=== PATIENT | male | born 1960 | race Caucasian/White ===

== ENCOUNTER 2019-07-12 10:12 | Outpatient (CLI) | payer BC, SELFPAY ==
--- NOTE | ~2019-07-12 | XR_ITS ---
EXAMINATION: XR chest 2V EXAM DATE: 07/12/2019 11:15 INDICATION: Shortness of breath. TECHNIQUE: Frontal and lateral projections of the chest obtained and reviewed. Comparison is made to prior examination from 08/13/2018. FINDINGS: Cardiomegaly and pulmonary vascular congestion. No confluent consolidation, pneumothorax o r pleural effusion suspected. The bones are osteopenic. There are bony degenerative changes. There i s no significant interval change. IMPRESSION: Cardiomegaly, pulmonary vascular congestion. Reviewed, dictated and finalized at location B. 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
--- NOTE | 2019-07-12 10:15 | ECG_ITS ---
Measurements Intervals [place] Rate: 85 P: 61 IA: 160 QRS: 30 QRSD: 90 T: 39 QT: 343 QTc: 408 Interpretive Statements SINUS RHYTHM WITH SINUS ARRHYTHMIA NORMAL ECG Electronically Signed On 07-12-2019 15:59:30 CARD RUNNER by Lasha Luke D.O.
== END 2019-07-12 10:13 | disposition home or self-care (01) ==
PROVIDERS: PCP Family Medicine; Visit Provider Family Medicine
DX: R06.02 Shortness of breath (principal); I51.7 Cardiomegaly
CPT/HCPCS: 71046; 93005

== ENCOUNTER 2019-07-31 07:52 | Outpatient (CLI) | payer BC, SELFPAY ==
--- NOTE | 2019-07-31 08:45 | ECHO_ITS ---
Patient Info Name: Alexis Mathis Age: 59 years : 1960 Gender: Male Ht: 69 in Wt: 282 lbs BSA: 2.56 m2 HR: 82 bpm BP: 147 / 87 mmHg Technical Quality: Fair Exam Date: 07/31/2019 9:13 AM Exam Location: [facility] Patient Status: Outpatient Admit Date: 07/31/2019 Staff Ordering Physician: Enedelia Flynn MD Certified Family Mediator: Iris Rivera RDCS Attending Provider: Enedelia Flynn MD Referring Physician: Gee ZEPEDA; Exam Type: CA echo doppler color flow Study Info Indications R06.02 - Shortness of breath Complete two-dimensional, color flow and Doppler transthoracic echocardiogram is performed. Summary 1. Left ventricular chamber dimension is normal. 2. Left ventricular systolic function is normal, estimated at 55-60%. 3. The left ventricular diastolic function is grade II diastolic dysfunction. 4. E/e' 9 is minimally elevated. 5. Left atrial chamber dimension is mildly enlarged. 6. Right atrial chamber dimension is mildly enlarged. 7. There is mild aortic valve sclerosis. 8. Mild pulmonary hypertension, estimated pulmonary arterial systolic pressure is 46 mmHg. Left Ventricle E/e' 9 is minimally elevated. Left ventricular chamber dimension is normal. Left ventricular systolic function is normal, estimated at 55-60%. The left ventricular diastolic function is grade II diastolic dysfunction. Right Ventricle Right ventricular chamber dimension is normal. Right ventricular systolic function is normal. Left Atria Left atrial chamber dimension is mildly enlarged. Right Atria Right atrial chamber dimension is mildly enlarged. Aortic Valve The aortic valve is trileaflet. There is mild aortic valve sclerosis. There is no aortic valve stenosis. There is no aortic valve regurgitation. Pulmonic Valve There is no pulmonic regurgitation. Mitral Valve There is no mitral valve stenosis. There is no mitral valve regurgitation. Tricuspid Valve There is no tricuspid valve regurgitation. Mild pulmonary hypertension, estimated pulmonary arterial systolic pressure is 46 mmHg. Pericardium/Pleural There is no pericardial effusion. Inferior Vena Cava Normal inferior vena cava with >50% collapse upon inspiration consistent with normal right atrial pressure, 5 mmHg. Aorta The aortic root size at the sinus of Valsalva is normal. Left Ventricular Outflow Tract Name Value Normal LVOT 2D LVOT Diameter 1.9 cm LVOT Doppler LVOT Peak Gradient 9 mmHg LVOT Mean Gradient 5 mmHg LVOT VTI 28 cm LVOT VTI/AV VTI Ratio 0.8 LVOT Stroke Volume 77 ml LVOT CO 6.2 l/min LVOT CI 2.4 l/min/m2 Pulmonic Valve Name Value Normal RVOT Doppler
--- NOTE | 2019-08-06 14:50 | WPDPFTINT ---
PFT Interpretation PFT Interpretation: This PFT met all criteria for ATS standards and reproducibility FEV/FVC post bronchodilator 61% FEV1 54% or 1.74 liters FVC 63% or 2.83 liters FEV improved by 22% and 310 ml post bronchodilater TLC 82% RV 123% RV/TLC 53% DLCO 82% when adjusted for alveolar volume but not adjusted for hemoglobin Flow volume loops showed significant expiratory coving Impression: Moderate airflow obstruction with significant improvement post brondchodilator and air trapping. This correlates with Asthma and or COPD. Clinical correlation is advised.
== END 2019-07-31 07:53 | disposition home or self-care (01) ==
PROVIDERS: PCP Family Medicine; Visit Provider Family Medicine
DX: J45.909 Unspecified asthma, uncomplicated (principal); R06.02 Shortness of breath; I51.7 Cardiomegaly
CPT/HCPCS: 93306; 94060; 94726; 94729

== ENCOUNTER 2019-08-08 09:40 | Outpatient (CLI) | payer BC, SELFPAY ==
--- NOTE | ~2019-08-08 | CT_ITS ---
EXAMINATION: CT chest wo con DATE: 08/08/2019 10:08 INDICATION: Shortness of breath and cough, prior smoker TECHNIQUE: Computed tomography (CT) of the chest was performed without intravenous contrast. The dose -length product (DLP) was 769.61 mGy-cm. Automated exposure control and iterative reconstruction tech [id number] were employed. COMPARISON: None FINDINGS: There are tree-in-bud opacities of the right upper and middle lobes. 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 There is no pleural effusion or pn eumothorax. No pathologically enlarged thoracic lymph nodes are identified. The heart size is normal. There is a 2 cm cyst of the left hepatic lobe. There is moderate lumbar spondylosis. IMPRESSION: 1. Tree-in-bud opacities of the right upper and middle lobes, consistent with infection/inflammation. Reviewed, dictated and finalized at location A. ASTRUCTURE DIRECTOR IMPRESSION: 1. Tree-in-bud opacities of the right upper and middle lobes, consistent with i nfection/inflammation.
== END 2019-08-08 09:41 | disposition home or self-care (01) ==
PROVIDERS: PCP Family Medicine; Visit Provider Family Medicine
DX: R06.09 Other forms of dyspnea (principal); R91.8 Other nonspecific abnormal finding of lung field
CPT/HCPCS: 71250

== ENCOUNTER 2020-02-26 08:51 | Emergency (ER) | payer BC, SELFPAY ==
--- NOTE | ~2020-02-26 | CT_ITS ---
EXAMINATION: CT abdomen pelvis w con EXAM DATE: 02/26/2020 10:55 INDICATION: Low abdominal pain. TECHNIQUE: Spiral CT of the abdomen and pelvis was performed following intravenous injection of 100 m L Omnipaque 350. Axial, coronal and sagittal images were reviewed. The dose-length product (DLP) fo r this examination was 1294.67 mGy-cm. The exposure was tailored according to patient size (auto mA exposure control), and iterative reconstruction (ASIR) was used as additional dose reduction techniqu e. There is no prior study for comparison. FINDINGS: The liver, spleen, adrenal glands and pancreas are unremarkable. Gallbladder is unremarkab le. No biliary obstruction. Portal and splenic veins are patent. Kidneys enhance symmetrically. T here is no hydronephrosis. The prostate is unremarkable. The bladder is unremarkable. There is no retroperitoneal or pelvic lymphadenopathy. There is mild scattered arteriosclerotic disease. There is extensive colonic diverticulosis with mild perisigmoid inflammation, most likely acute uncom plicated sigmoid diverticulitis. The appendix is normal. The stomach and small bowel are unremarkabl e. No free intraperitoneal gas. The heart is normal in size. There are no pericardial or pleural effusions. The lung bases are unremarkable. There are no osteoblastic or osteolytic lesions identi fied. There is a 1.2 x 0.8 cm sclerotic focus in the right iliac crest, probably bone island given n o other sclerotic foci are identified. IMPRESSION: 1. Findings consistent with mild uncomplicated sigmoid diverticulitis. Reviewed, dictated and finalized at location A.
[2020-02-26 09:22] VITALS: BP 166/87; PULSE 78; RESP 18; TEMP 36.6; O2SAT 97
[2020-02-26 09:31] LABS: Basophils Percent Auto 0.4 % (0.2-1.2); Eosinophils Absolute Auto 0.1 K/mm3 (0-0.3); Eosinophils Percent Auto 0.9 % (0-4.4); Hemoglobin 14.2 g/dL (14.0-18.0); Immature Granulocyte Absolute 0.05 K/mm3 (0.00-0.031); Immature Granulocyte Percent A 0.5 % (0-0.5); Lymphocytes Absolute Auto 0.91 K/mm3 (0.9-3.2); Lymphocytes Percent Auto 9.1 % (18.3-44.2); Mean Corpuscular HGB Conc 33.8 g/dl (32-36); Mean Corpuscular Hemoglobin 33.9 pg (26-34); Mean Corpuscular Volume 100.2 fl (80-100); Mean Platelet Volume 10.4 fl (7.4-10.4); Monocytes Absolute Auto 0.6 K/mm3 (0.1-0.6); Monocytes Percent Auto 5.7 % (2.6-8.5); Neutrophils Absolute Auto 8.4 K/mm3 (1.3-6.7); Neutrophils Percent Auto 83.4 % (45.5-73.1); Platelet Count Result 278 k/mm3 (150-375); Red Blood Count 4.19 M/mm3 (4.6-6.20); Red Cell Distribution Width 13.1 % (11.5-14.5)
[2020-02-26 09:32] LABS: Add Urine Microscopic? NO; Appearance Urine Clear (Clear); Bilirubin Urine Negative (Negative); Blood Urine Negative (Negative); Color Urine Yellow (Yellow); Glucose Urine UA Negative (Negative); Ketones Urine Negative (Negative); Leukocyte Esterase Ur Negative LEU/UL (Negative); Nitrate Urine Negative (Negative); Protein Urine Negative (Negative); Specific Grav Ur 1.016 (1.001-1.035); Urobilinogen Urine Negative mg/dL (<2.0)
[2020-02-26 10:06] LABS: Alanine Aminotransferase 32 U/L (4-50); Albumin Level 4.7 g/dL (3.5-5.1); Alkaline Phosphatase 111 U/L (38-126); Anion Gap 9 mmol/L (8-16); Aspartate Amino Transferase 26 U/L (17-59); Bilirubin,Total 0.6 mg/dL (0.2-1.3); Blood Urea Nitrogen 16 mg/dL (9-20); Calcium 9.8 mg/dL (8.4-10.2); Carbon Dioxide 26 mmol/L (22-30); Chloride 101 mmol/L (98-107); Estimated CRCL calculation 122 ml/min; Estimated Glomerular Filt Rate > 60; Glucose 149 mg/dL (75-110); Lipase 75 U/L (23-300); Potassium 4.2 mmol/L (3.4-5.0); Sodium 136 mmol/L (137-145)
--- NOTE | 2020-02-26 10:33 | ED.ABDPAIN ---
HPI - Abdominal Pain General Chief Complaint: Abdominal Pain Stated Complaint: bilat flank pain, abd pain Time Seen by Provider: 02/26/20 10:00 Source: patient Mode of arrival: ambulatory Limitations: no limitations History of Present Illness HPI narrative: This patient is a 59 year old male who presents for evaluation of lower back pain and left lower abdominal pain. Patient states he has been having lower back pain for 2 weeks. This pain is intermittent. He states it seems to be worse with laying down. He denies any injury. He has been taking ibuprofen for his pain, and it is minimal now. He also reports left lower abdominal pain that started yesterday. This pain is also intermittent and he denies having pain currently. Yesterday his abdominal pain was worse with eating. He denies associated nausea or vomiting. HE also denies hematuria. Related Data Home Medications Medication Instructions Recorded Confirmed sildenafil 100 mg tablet 100 mg PO DAILY PRN 06/27/19 06/27/19 Allergies Allergy/AdvReac Type Severity Reaction Status Date / Time No Known Allergies Allergy Verified 06/29/19 10:13 Review of Systems Review of Systems: All systems reviewed & are unremarkable except as noted in HPI and below Constitutional: Constitutional: Reports chills Gastrointestinal: Gastrointestinal: Reports abdominal pain, Denies diarrhea, Denies nausea and Denies vomiting Genitourinary: Genitourinary: Denies hematuria, Reports dysuria and Denies urinary frequency Musculoskeletal: Musculoskeletal: Reports back pain PMFSH Social History Social History Smoking status: Never smoker Second hand tobacco smoke exposure: No Alcohol intake: never Gender identity (if verbalized by the patient): Male Exam Narrative: Exam Narrative: GENERAL: Well-appearing, well-nourished, and in no acute distress. HEAD: Normocephalic, atraumatic EYES: PERRLA and EOMI, conjunctiva clear without discharge THROAT:Mucous membranes moist, Oropharynx normal without erythema, exudate, peritonsillar swelling or fluctuance NECK: Supple, without lymphadenopathy or mass RESPIRATORY: No respiratory distress, Airway patent, Respirations non-labored, Clear to auscultation without rales, rhonchi or wheeze HEART: Regular rate and rhythm. No murmur heard. Normal peripheral pulses. ABDOMEN: Soft, nontender, nondistended, normal active bowel sounds. No masses. No rebound or guarding, No organomegaly. EXTREMITIES: No edema, normal strength with full range of motion. SKIN: Warm, dry, normal color without rash NEURO: Alert and oriented x3. CN 2-12 grossly intact. No focal deficits. PSYCH: Normal mood and affect. Course Reevaluation(s) Reevaluation #1: I discussed with patient that he was found to have diverticulitis and he was given dose of zosyn. He will be discharged with antibiotics. Date: 02/26/20 Time: 12:13 Vital Signs Vital signs: Vital Signs Temperature 97.8 F 02/26/20 09:22 Pulse Rate 78 02/26/20 09:22 Respiratory Rate 18 02/26/20 09:22 Blood Pressure 166/87 H 02/26/20 09:22 Pulse Oximetry 97 02/26/20 09:22 Temperature 97.8 F 02/26/20 09:22 Pulse Rate 76 02/26/20 12:26 Respiratory Rate 18 02/26/20 12:26 Blood Pressure 150/70 H 02/26/20 12:26 Pulse Oximetry 99 02/26/20 12:26 MDM - Abdominal Pain Lab Data Attestation: I reviewed the patient's lab results. Result diagrams: 02/26/20 09:22 02/26/20 09:43 Labs: Lab Results 02/26/20 02/26/20 02/26/20 Range/Units 09:22 09:22 09:43 WBC 10.0 (4.5-10.0) K/mm3 RBC 4.19 L (4.6-6.20) M/mm3 Hgb 14.2 (14.0-18.0) g/dL Hct 42.0 (42.0-52.0) % MCV 100.2 H (80-100) fl MCH 33.9 (26-34) pg MCHC 33.8 (32-36) g/dl RDW 13.1 (11.5-14.5) % Plt Count 278 (150-375) k/mm3 MPV 10.4 (7.4-10.4) fl Immature Gran % (Auto) 0.5 (0-0.5)
--- NOTE | 2020-02-26 11:07 | PC.NURSE ---
REPORT GIVEN TO GISELL CURRAN AT THE BEDSIDE AT THIS TIME, SHE HAS ASSUMED PT CARE.
[2020-02-26 12:26] VITALS: BP 150/70; PULSE 76; RESP 18; O2SAT 99
== END 2020-02-26 12:27 | disposition home or self-care (01) ==
PROVIDERS: Emergency Provider General Practice; PCP Family Medicine
DX: K57.32 Diverticulitis of large intestine without perforation or abscess without bleeding (principal)
CPT/HCPCS: 36415; 74177; 80053; 81003; 83690; 85025; 96365; 99284; J2543; Q9967

== ENCOUNTER 2020-03-11 09:29 | Outpatient (CLI) | payer BC, SELFPAY ==
--- NOTE | ~2020-03-11 | CT_ITS ---
EXAMINATION:CT chest wo con DATE: 03/11/2020 09:47 INDICATION: Pulmonary nodules. TECHNIQUE: Computed tomography (CT) of the chest was performed without intravenous contrast. Automate d exposure control and iterative reconstruction technique were employed. The dose-length product (DLP ) was 741.46 mGy-cm. COMPARISON: Chest CT 08/08/2019 FINDINGS: Right lower lobe is small, which is chronic. There is mild atelectasis in right lower lobe. A calcified left lung nodule is consistent with old granulomatous disease. No pleural effusion. The heart size is normal. There are coronary artery calcifications. No pericardial effusion. There is a 1 7 mm cyst in the liver. There are bridging endplate osteophytes at multiple levels in the spine, cons istent with diffuse idiopathic skeletal hyperostosis (DISH). There is mild chronic anterior wedging o f T4, T12, and L1 vertebral bodies. IMPRESSION: 1. Chronically small right lung lower lobe with mild atelectasis. Reviewed, dictated and finalized at location A.
== END 2020-03-11 09:30 | disposition home or self-care (01) ==
PROVIDERS: PCP Family Medicine
DX: R91.1 Solitary pulmonary nodule (principal)
CPT/HCPCS: 71250

== ENCOUNTER 2020-04-25 09:12 | Emergency (ER) | payer BC, SELFPAY ==
--- NOTE | ~2020-04-25 | XR_ITS ---
EXAMINATION: XR chest 2V DATE: 04/25/2020 09:55 INDICATION: Dizziness. Left arm numbness. TECHNIQUE: Frontal and lateral views of the chest were obtained. COMPARISON: Chest 2 views 07/12/2019, chest CT 03/11/2020 FINDINGS: There is mild atelectasis in the lower lung zones. No pleural effusion or pneumothorax. The heart size is normal. There is a prominent left paracardial fat pad. There is mild chronic anterior wedging of T11-L1 vertebral bodies. IMPRESSION: 1. Mild atelectasis in the lower lung zones. Reviewed, dictated and finalized at location B. 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
--- NOTE | ~2020-04-25 | CT_ITS ---
EXAMINATION: CT brain wo con EXAM DATE: 04/25/2020 10:34 INDICATION: Right hand paresthesia. Dizziness. TECHNIQUE: Spiral CT of the head was performed without contrast. Axial, coronal and sagittal images were reviewed. The dose-length product (DLP) for this examination was 681.00 mGy-cm. The exposure w as tailored according to patient size, and iterative reconstruction (ASIR) was used as additional dos e reduction technique. There is no prior study for comparison. FINDINGS: There is no acute intraparenchymal hemorrhage. No evidence of intraparenchymal brain mass lesion. No evidence of acute infarction. Please note that initial head CT has limited sensitivity f or small or acute infarctions. There is mild periventricular and subcortical hypodensity, nonspecific but probably related to small vessel ischemic disease. There is mild prominence of the sulci and v entricles related to cerebral atrophy. There is intracranial carotid arteriosclerosis. There are n o extra-axial collections. There is no mass effect or midline shift. The orbits are unremarkable. Soft tissue is unremarkable. The visualized sinuses and mastoid air cells are well aerated. IMPRESSION: 1. No acute intracranial findings. 2. Chronic age related findings. Reviewed, dictated and finalized at location A. 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
[2020-04-25 09:18] VITALS: BP 160/80; PULSE 95; RESP 24; TEMP 36.6; O2SAT 98
--- NOTE | 2020-04-25 09:25 | ECG_ITS ---
Measurements Intervals [place] Rate: 89 P: 24 TN: 157 QRS: 11 QRSD: 89 T: 30 QT: 346 QTc: 423 Interpretive Statements SINUS RHYTHM NORMAL ECG Electronically Signed On 04-25-2020 14:39:21 PORTAL ARCHITECT by Lasha Luke D.O.
[2020-04-25 09:26] VITALS: BP 137/80; BP 160/85; PULSE 90
[2020-04-25 09:27] VITALS: BP 134/80; PULSE 100
[2020-04-25 09:45] LABS: Basophils Percent Auto 0.2 % (0.2-1.2); Eosinophils Absolute Auto 0.1 K/mm3 (0-0.3); Eosinophils Percent Auto 0.9 % (0-4.4); Hematocrit 38.4 % (42.0-52.0); Immature Granulocyte Absolute 0.03 K/mm3 (0.00-0.031); Immature Granulocyte Percent A 0.3 % (0-0.5); Lymphocytes Absolute Auto 1.08 K/mm3 (0.9-3.2); Mean Corpuscular HGB Conc 33.9 g/dl (32-36); Mean Corpuscular Hemoglobin 33.6 pg (26-34); Mean Corpuscular Volume 99.2 fl (80-100); Mean Platelet Volume 9.7 fl (7.4-10.4); Monocytes Absolute Auto 0.6 K/mm3 (0.1-0.6); Monocytes Percent Auto 6.1 % (2.6-8.5); Neutrophils Absolute Auto 7.3 K/mm3 (1.3-6.7); Neutrophils Percent Auto 80.5 % (45.5-73.1); Platelet Count Result 288 k/mm3 (150-375); Red Blood Count 3.87 M/mm3 (4.6-6.20); Red Cell Distribution Width 13.6 % (11.5-14.5)
[2020-04-25 09:57] LABS: Anion Gap 9 mmol/L (8-16); Blood Urea Nitrogen 17 mg/dL (9-20); Calcium 9.7 mg/dL (8.4-10.2); Carbon Dioxide 26 mmol/L (22-30); Chloride 104 mmol/L (98-107); Estimated CRCL calculation 118 ml/min; Estimated Glomerular Filt Rate > 60; Glucose 134 mg/dL (75-110); Potassium 4.2 mmol/L (3.4-5.0); Sodium 139 mmol/L (137-145)
[2020-04-25 09:58] LABS: INR 0.9; Prothrombin Time 12.7 Seconds (11.1-14.7)
[2020-04-25 09:59] LABS: Partial Thromboplastin Time 30.3 SECONDS (22.3-36.8)
[2020-04-25 10:09] LABS: Troponin I < 0.012 ng/mL (0.000-0.034)
--- NOTE | 2020-04-25 10:25 | ED.GENADULT ---
HPI - General Adult General Chief complaint: Dizziness Stated complaint: tingling arms, dizzy since yesterday Time Seen by Provider: 04/25/20 10:00 Source: patient and family Mode of arrival: ambulatory Limitations: no limitations History of Present Illness HPI narrative: 60 years old white male presented to the ED with lightheadedness and intermittent numbness of the left hand, sometimes right hand, sometimes both usually last for few seconds then resolves spontaneously. Currently patient is asymptomatic. Patient denying any fever, chills, nausea, vomiting, chest pain, shortness of breath, back pain or headache. Patient reports tremendous amount of stress lately. Related Data Home Medications Medication Instructions Recorded Confirmed sildenafil 100 mg tablet 100 mg PO DAILY PRN 06/27/19 06/27/19 Allergies Allergy/AdvReac Type Severity Reaction Status Date / Time No Known Allergies Allergy Verified 04/25/20 09:34 Review of Systems Review of Systems: Narrative: CONSTITUTIONAL: Denies fever, chills, or sweats. EYES: Denies visual changes, redness, or discharge. ENT: Denies rhinorrhea, congestion, sore throat, or otalgia. CARDIOVASCULAR: Denies chest pain, palpitations, or edema. RESPIRATORY: Denies cough or dyspnea. GASTROINTESTINAL: Denies abdominal pain, nausea, vomiting, or diarrhea. GENITOURINARY: Denies dysuria or hematuria. SKIN: Denies rash or itching. MUSCULOSKELETAL: Denies back pain, joint pain, or myalgia. NEUROLOGIC: Denies headache, numbness, or weakness. PSYCHIATRIC: Denies anxiety or depression. [facility] Past Medical History Medical History (Updated 04/25/20 @ 10:31 by Key Sharp MD) Elevated glucose Essential hypertension Mild persistent asthma Mixed hyperlipidemia Social History Social History Smoking status: Never smoker Second hand tobacco smoke exposure: No Alcohol intake: never Gender identity (if verbalized by the patient): Male Exam Narrative: Exam Narrative: General appearance: Well-developed, well-nourished Skin: Normal color Head: Normocephalic, nontraumatic Eyes: Clear conjunctiva ENT: Oropharynx normal, ears normal, nose normal Neck: Supple, nontender Chest and respiratory: Airway patent, no respiratory distress, no accessory muscle use Heart: Regular rate/rhythm Abdomen: Soft, nontender, no organomegaly, quiet bowel sounds Vascular: Normal peripheral pulses, normal capillary refill. 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 Labs, CT head, chest x-ray, 1 mg of Ativan IV ordered. Differential Diagnosis Differential Diagnosis: On anxiety related symptoms, electrolyte imbalance, Vital Signs Vital Signs: Vital Signs Temperature 36.6 C 04/25/20 09:18 Pulse Rate 95 04/25/20 09:18 Respiratory Rate 24 H 04/25/20 09:18 Blood Pressure 160/80 H 04/25/20 09:18 Pulse Oximetry 98 04/25/20 09:18 Temperature 36.6 C 04/25/20 09:18 Pulse Rate 81 04/25/20 10:4
--- NOTE | 2020-04-25 10:28 | PC.NURSE ---
Pt to CT scan via stretcher.
[2020-04-25] MEDS: LORazepam INJ (*CRX) 2 MG/ML VIAL 1 MG IV PUSH (10:45)
[2020-04-25 10:47] VITALS: BP 144/78; PULSE 81; RESP 15; O2SAT 98
[2020-04-25 11:21] VITALS: BP 130/78; PULSE 85; RESP 21; O2SAT 96
== END 2020-04-25 11:23 | disposition home or self-care (01) ==
PROVIDERS: Emergency Provider Emergency Medicine; PCP Family Medicine
DX: R20.2 Paresthesia of skin (principal); F41.9 Anxiety disorder, unspecified; I10 Essential (primary) hypertension; J45.20 Mild intermittent asthma, uncomplicated; E78.2 Mixed hyperlipidemia; R91.8 Other nonspecific abnormal finding of lung field
CPT/HCPCS: 36415; 70450; 71046; 80048; 84484; 85025; 85610; 85730; 93005; 96374; 99284; J2060

== ENCOUNTER 2020-10-31 11:05 | Outpatient (CLI) | payer BC, SELFPAY ==
[2020-10-31 12:06] LABS: Erythrocyte Sedimentation Rate 27 mm/hr (0-20)
[2020-11-04 12:13] LABS: Tissue Transglutaminase IgA Ab 1 U/mL (<4)
[2020-11-04 19:02] LABS: Tissue Transglutaminase IgG Ab 2 U/mL (<6)
== END 2020-10-31 11:06 | disposition home or self-care (01) ==
LOC: ANHLAB 11:06
PROVIDERS: PCP Family Medicine; Visit Provider Internal Medicine Gastroenterology
DX: K52.9 Noninfective gastroenteritis and colitis, unspecified (principal)
CPT/HCPCS: 36415; 83516; 85652; 86140

== ENCOUNTER 2021-01-27 07:18 | Outpatient (CLI) | payer BC, SELFPAY ==
--- NOTE | ~2021-01-27 | US_ITS ---
US abdomen complete EXAMINATION: US Abdomen Complete INDICATION: Abdominal pain PROCEDURE: Realtime High Resolution abdomen ultrasound. COMPARISON: No prior studies for comparison FINDINGS: Gallbladder within normal limits. No gallstones, pericholecystic fluid, gallbladder wall t hickening or biliary dilatation. Common bile duct measures 4 mm. Liver echotexture is increased, consistent with fatty infiltration.. The pancreas is obscured by brittaney l gas. Spleen is unremarkeable. Renal echotexture is within normal limits bilaterally without hydrone phrosis, contour deforming mass or renal stone. Right kidney measures 10.9 cm. Left kidney measures 1 0.7 cm. Visualized aspects of the aorta and IVC are within normal limits. Portal vein is patent. No sonograph ic Batista's sign indicated by the technologist. IMPRESSION: 1: Hepatic steatosis. Reviewed, dictated and finalized at location A. IMPRESSION: 1: Hepatic steatosis.
== END 2021-01-27 07:19 | disposition home or self-care (01) ==
LOC: ANHIMG 07:23
PROVIDERS: PCP Family Medicine; Visit Provider Internal Medicine Gastroenterology
DX: R10.9 Unspecified abdominal pain (principal); R14.0 Abdominal distension (gaseous); K76.0 Fatty (change of) liver, not elsewhere classified
CPT/HCPCS: 76700

== ENCOUNTER → 2021-10-06 12:56 | Outpatient (CLI) | payer BC, SELFPAY ==
--- NOTE | ~2021-10-06 | XR_ITS ---
XR chest 2V DATE: 10/06/2021 13:07 INDICATION: Shortness of breath TECHNIQUE: 2 views COMPARISON: 04/25/2020 PA and lateral chest FINDINGS: Cardiac megaly. Pulmonary vascular redistribution, suggesting mild pulmonary venous hyperte nsion. No pulmonary consolidation. No pleural effusion or pneumothorax. Osteopenia. Degenerative spurring of the thoracic spine. IMPRESSION: Cardiomegaly and pulmonary vascular redistribution, suggesting mild congestive heart fail ure Reviewed, dictated and finalized at location A. IMPRESSION: Cardiomegaly and pulmonary vascular redistribution, suggesting mild congestive heart failure
== END ==
PROVIDERS: PCP Family Medicine; Visit Provider Physician Assistant
DX: R06.02 Shortness of breath (principal); I51.7 Cardiomegaly
CPT/HCPCS: 71046

== ENCOUNTER 2021-10-07 09:45 | Outpatient (CLI) | payer BC, SELFPAY ==
[2021-10-07 10:05] LABS: Basophils Percent Auto 0.3 % (0.2-1.2); Eosinophils Absolute Auto 0.1 K/mm3 (0-0.3); Eosinophils Percent Auto 1.6 % (0-4.4); Hematocrit 36.7 % (42.0-52.0); Hemoglobin 11.8 g/dL (14.0-18.0); Immature Granulocyte Absolute 0.03 K/mm3 (0.00-0.031); Immature Granulocyte Percent A 0.4 % (0-0.5); Lymphocytes Percent Auto 13.3 % (18.3-44.2); Mean Corpuscular HGB Conc 32.2 g/dl (32-36); Mean Corpuscular Hemoglobin 32.4 pg (26-34); Mean Corpuscular Volume 100.8 fl (80-100); Mean Platelet Volume 9.7 fl (7.4-10.4); Monocytes Absolute Auto 0.5 K/mm3 (0.1-0.6); Monocytes Percent Auto 6.8 % (2.6-8.5); Neutrophils Absolute Auto 5.3 K/mm3 (1.3-6.7); Neutrophils Percent Auto 77.6 % (45.5-73.1); Platelet Count Result 250 k/mm3 (150-375); Red Blood Count 3.64 M/mm3 (4.6-6.20); Red Cell Distribution Width 15.3 % (11.5-14.5); White Blood Count 6.8 K/mm3 (4.5-10.0)
[2021-10-07 10:20] LABS: Iron 62 ug/dL (49-181)
[2021-10-07 10:29] LABS: NT Pro B Type Natriuretic Pept 1130 pg/mL (5-100); Percent Iron Saturation 15 % (20-50)
== END 2021-10-07 09:46 | disposition home or self-care (01) ==
LOC: ANHLAB 09:47
PROVIDERS: PCP Family Medicine; Visit Provider Physician Assistant Medical
DX: R53.83 Other fatigue (principal); R07.9 Chest pain, unspecified
CPT/HCPCS: 36415; 82728; 83540; 83550; 83880; 85025

== ENCOUNTER 2021-12-01 07:29 | Outpatient (CLI) | payer BC, SELFPAY ==
--- NOTE | 2021-12-01 07:49 | ECHO_ITS ---
Patient Info Name: Alexis Mathis Age: 61 years : 1960 Gender: Male Ht: 69 in Wt: 285 lbs BSA: 2.57 m2 HR: 108 bpm BP: 140 / 87 mmHg Heart Rhythm: Atrial Fibrillation Technical Quality: Fair Exam Date: 12/01/2021 8:15 AM Exam Location: [facility] Patient Status: Outpatient Admit Date: 12/01/2021 Staff Ordering Physician: Lasha Luke DO Compressor Stations Superintendent: Iris Rivera RDCS Attending Provider: Lasha Luke DO Referring Physician: Ti CALVIN; Exam Type: CA echo dop color flow w con Study Info Indications R60.0 - Localized edema Complete two-dimensional, color flow and Doppler transthoracic echocardiogram is performed with contrast to opacify the left ventricle and to improve the deliniation of the left ventricle endocardial borders. Contrast/Agitated Saline Contrast/Ag. Saline: Definity Amount: 3.00 ml Administered By: Iris Rivera RDCS New IV Access: Inner Forearm and Left Site Condition: No extravasation and IV removed Summary 1. Definity contrast administered improved wall motion interpretation. 2. Left ventricular chamber dimension is moderately enlarged. 3. Left ventricular systolic function is mildly reduced, estimated at 45-50%. 4. The left ventricular diastolic function is normal. 5. E/e' 9 is minimally elevated. 6. Atrial fibrillation. 7. Right ventricular systolic function is mildly reduced. 8. Right ventricular chamber dimension is moderately enlarged. 9. Left atrial chamber dimension is moderately enlarged. 10. Right atrial chamber dimension is mildly enlarged. 11. There is moderate aortic valve sclerosis. 12. There is trace tricuspid valve regurgitation. 13. Mild pulmonary hypertension, estimated pulmonary arterial systolic pressure is 43 mmHg. 14. Dilated inferior vena cava with >50% collapse upon inspiration consistent with elevated right atrial pressure, 10 mmHg. Left Ventricle E/e' 9 is minimally elevated. Atrial fibrillation. Definity contrast administered improved wall motion interpretation. Left ventricular chamber dimension is moderately enlarged. Left ventricular systolic function is mildly reduced, estimated at 45-50%. The left ventricular diastolic function is normal. Right Ventricle Right ventricular systolic function is mildly reduced. Right ventricular chamber dimension is moderately enlarged. Left Atria Left atrial chamber dimension is moderately enlarged. Right Atria Right atrial chamber dimension is mildly enlarged. Aortic Valve The aortic valve is trileaflet. There is moderate aortic valve sclerosis. There is no aortic valve stenosis. There is no aortic valve regurgitation. Pulmonic Valve There is no pulmonic regurgitation. Mitral Valve There is no mitral valve stenosis. There is no mitral valve regurgitation. Tricuspid Valve There is trace tricuspid valve regurgitation. Mild pulmonary hypertension, estimated pulmonary arterial systolic pressure is 43 mmHg. Pericardium/Pleural There is no pericardial effusion. Inferior Vena Cava Dilated inferior vena cava with >50% collapse upon inspiration consistent with elevated right atrial pressure, 10 mmHg. Aorta The aortic root size at the sinus of Valsalva is normal. Left Ventricular Outflow Tract Name Value Normal
[2021-12-01] MEDS: PERFLUTREN LIPID MICROSPHERES 1.5 ML VIAL DILUTED TO 10 ML TOTAL VOLUME IV PUSH (09:15)
== END 2021-12-01 07:30 | disposition home or self-care (01) ==
LOC: ANHCARD 07:33
PROVIDERS: PCP Family Medicine; Visit Provider Internal Medicine Cardiovascular Disease
DX: R60.0 Localized edema (principal); I08.3 Combined rheumatic disorders of mitral, aortic and tricuspid valves
CPT/HCPCS: C8929; Q9957

== ENCOUNTER 2021-12-18 08:25 | Outpatient (CLI) | payer BC, SELFPAY ==
--- NOTE | ~2021-12-18 | NM_ITS ---
EXAMINATION: NM yury stress w perfusion DATE: 12/18/2021 10:27 INDICATION: Atherosclerotic heart disease of [place] coronary arteries TECHNIQUE: Rest images were obtained following intravenous administration of 10.8 mCi Tc99m tetrofosm in (Myoview). The patient was infused intravenously with Lexiscan (Regadenoson). Then, 34.6 mCi Tc99m tetrofosmin (Myoview) was administered intravenously, and stress images were obtained. Data was valentin nstructed into short axis and horizontal and vertical long axis SPECT images. Gated SPECT images were also obtained. COMPARISON: None. FINDINGS: There is no definite reversible or fixed perfusion abnormality to suggest ischemia or infar ction. There is normal left ventricular chamber size, wall motion and ejection fraction. Left ventr icular ejection fraction measures 52%. IMPRESSION: 1. Normal myocardial perfusion at rest and during stress. 2. Left ventricular ejection fraction measuring 52%. Reviewed, dictated and finalized at location A.
--- NOTE | 2021-12-18 08:39 | EST_ITS ---
Patient Info Name: Alexis Mathis Age: 61 years : 1960 Gender: Male Ht: 69 in Wt: 290 lbs BSA: 2.59 m2 HR: 105 bpm BP: 163 / 103 mmHg Heart Rhythm: Sinus Rhythm Exam Date: 12/18/2021 9:30 AM Exam Location: [facility] Stress Patient Status: Outpatient Admit Date: 12/18/2021 Staff Ordering Physician: Lasha Luke DO Attending Provider: Lasha Luke DO Exercise Technologist: Jeanine Henning CT Exercise Physician: Lasha Luke DO Exam Type: CA stress yury w NM Study Info Indications I25.10 - Atherosclerotic heart disease of [place] coronary artery without angina pectoris A regadenoson stress test was performed. Summary 1. 1. Negative lexiscan stress test for ischemic ST changes by ECG criteria. 2. 2. Baseline hypertension. 3. 3. Nuclear scan to follow and will be reported separately. Please correlate with it. 4. 4. Patient informed of the above results. Protocol: Lexiscan Stress ECG Details Stage: REST Duration (min): 2 min : 22 sec HR (bpm): 104 SBP (mmHg): 163 DBP (mmHg): 103 Stage: REST Duration (min): 13 min : 50 sec HR (bpm): 94 SBP (mmHg): 163 DBP (mmHg): 103 Stage: STAGE 1 Duration (min): 1 min : 0 sec HR (bpm): 108 SBP (mmHg): 212 DBP (mmHg): 98 Stage: RECOVERY Duration (min): 1 min : 0 sec HR (bpm): 120 SBP (mmHg): 212 DBP (mmHg): 98 Stage: RECOVERY Duration (min): 2 min : 0 sec HR (bpm): --- SBP (mmHg): 212 DBP (mmHg): 98 Stage: RECOVERY Duration (min): 3 min : 0 sec HR (bpm): 120 SBP (mmHg): 212 DBP (mmHg): 98 Stage: RECOVERY Duration (min): 4 min : 0 sec HR (bpm): 114 SBP (mmHg): 212 DBP (mmHg): 98 Stage: RECOVERY Duration (min): 4 min : 20 sec HR (bpm): 113 SBP (mmHg): 199 DBP (mmHg): 101 Rest HR: 94 bpm Peak HR: 130 bpm Rest Sys BP: 163 mmHg Peak Sys BP: 212 mmHg Max Pred HR: 160 bpm % Max Pred HR: 81 % Target HR: 136 bpm Max RPP: 27,560 bpm*mmHg Termination Reason: Completed protocol Cardiac Symptoms: Shortness of breath Total Time: 1 min : 0 sec Rest Guzmán BP: 103 mmHg Peak Guzmán BP: 98 mmHg Total Dose: 0.4 mg Resting ECG Atrial fibrillation, IRBBB. Stress ECG No ST changes. Arrhythmias None. Report Signatures
== END 2021-12-18 08:26 | disposition home or self-care (01) ==
PROVIDERS: PCP Family Medicine; Visit Provider Internal Medicine Cardiovascular Disease
DX: I25.10 Atherosclerotic heart disease of native coronary artery without angina pectoris (principal); I51.89 Other ill-defined heart diseases
CPT/HCPCS: 78452; 93017; A9502; J2785

== ENCOUNTER 2022-05-04 13:37 | Outpatient (CLI) | payer BC, SELFPAY ==
--- NOTE | ~2022-05-04 | US_ITS ---
EXAMINATION: US scrotum doppler DATE: 05/04/2022 14:11 INDICATION: Right epididymitis TECHNIQUE: Testicular sonogram utilizing grayscale and Doppler COMPARISON: None. FINDINGS: The right testis measures 2.4 x 2.2 x 1.9 cm. The left testis measures 2.6 x 1.8 x 1.5 cm. Symmetric normal grayscale appearance to both testes. 2 mm anechoic likely tunica cyst at the periphery of the left testis. There is normal vascular flow to both testes. The right epididymis is normal with normal vascular flow. 5 x 4 x 2 mm anechoic left epididymal cyst. The left epididymis is otherwise normal w ith normal vascular flow. There is no varicocele or hydrocele. There is asymmetric scrotal skin thick ening measuring 4.6 mm on the right and 3.6 mm on the left. IMPRESSION: 1. Normal right testis and epididymis with no increased vascular flow to suggest epididymitis. 2. Small tunica cyst at the left testis and small left epididymal cyst. 2. Asymmetric right-sided predominant scrotal skin thickening which could be seen with cellulitis. Reviewed, dictated and finalized at location A. [facility] IMPRESSION: 1. Normal right testis and epididymis with no increased vascular flow to sugge st epididymitis. 2. Small tunica cyst at the left testis and small left epididymal cyst. 2. Asymmetric right-sided predominant scrotal skin thickening which could be se en with cellulitis.
== END 2022-05-04 13:38 | disposition home or self-care (01) ==
PROVIDERS: PCP Family Medicine; Visit Provider Nurse Practitioner
DX: N45.1 Epididymitis (principal)
CPT/HCPCS: 76870; 93976

== ENCOUNTER 2022-07-04 09:24 | Outpatient (CLI) | payer BC, SELFPAY ==
--- NOTE | ~2022-07-04 | XR_ITS ---
EXAMINATION: XR chest 2V DATE: 07/04/2022 09:39 INDICATION: Cough. Pneumonia. TECHNIQUE: Frontal and lateral views of the chest were obtained. COMPARISON: Chest 2 views 10/06/2021, chest CT 03/11/2020 FINDINGS: There are scattered airspace opacities involving all right lung zones. No pleural effusion or pneumothorax. The heart size is normal. There are prominent paracardial fat pads. IMPRESSION: 1. Scattered airspace opacities involving all right lung zones, consistent with pneumonia. Reviewed, dictated and finalized at location A. 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
== END 2022-07-04 09:25 | disposition home or self-care (01) ==
LOC: ANHIMG 09:26
PROVIDERS: PCP Family Medicine; Visit Provider Physician Assistant
DX: R05.9 Cough, unspecified (principal); R91.8 Other nonspecific abnormal finding of lung field
CPT/HCPCS: 71046

== ENCOUNTER 2023-04-09 09:49 | Outpatient (CLI) | payer BC, SELFPAY ==
--- NOTE | ~2023-04-09 | XR_ITS ---
XR chest 2V 04/09/2023 10:09 Indication: Cough Procedure: 2 view chest Comparison: Comparison to multiple prior studies sequentially, with oldest reviewed study dated 07/12. Findings: Cardiomegaly. Bibasilar atelectasis/scarring. Mild pulmonary vascular congestion. No pleura l effusion or pneumothorax. No acute osseous abnormality. Impression: 1: Bibasilar atelectasis/scarring. 2: Cardiomegaly. Reviewed, dictated and finalized at location B. Impression: 1: Bibasilar atelectasis/scarring. 2: Cardiomegaly.
== END 2023-04-09 09:50 | disposition home or self-care (01) ==
LOC: ANHIMG 09:51
PROVIDERS: PCP Family Medicine; Visit Provider Physician Assistant
DX: R05.9 Cough, unspecified (principal); I51.7 Cardiomegaly
CPT/HCPCS: 71046

== ENCOUNTER 2023-05-18 12:31 | Outpatient (CLI) | payer BC, SELFPAY ==
--- NOTE | 2023-05-18 12:50 | ECHO_ITS ---
Patient Info Name: Alexis Mathis Age: 63 years : 1960 Gender: Male Ht: 69 in Wt: 300 lbs BSA: 2.64 m2 HR: 86 bpm BP: 124 / 80 mmHg Heart Rhythm: Atrial Fibrillation Technical Quality: Poor, Fair Exam Date: 05/18/2023 1:02 PM Exam Location: Echo [facility] Patient Status: Outpatient Admit Date: 05/18/2023 Staff Ordering Physician: Lasha Luke DO Envelope Press Operator: Iris Rivera RDCS Attending Provider: Lasha Luke DO Referring Physician: Ti CALVIN; Exam Type: CA echo dop color flow w con Study Info Indications I48.91 - UNSPECIFIED ATRIAL FIBRIALLATION Complete two-dimensional, color flow and Doppler transthoracic echocardiogram is performed with contrast to opacify the left ventricle and to improve the deliniation of the left ventricle endocardial borders. Contrast/Agitated Saline Contrast/Ag. Saline: Definity Amount: 3.00 ml Administered By: Iris Rivera RDCS New IV Access: Inner Forearm and Left Site Condition: No extravasation, Site dressing applied and IV removed Reason for Poor Study: patient body habitus Summary 1. Definity contrast administered improved wall motion interpretation. 2. Left ventricular chamber dimension is normal. 3. Left ventricular systolic function is normal, estimated at 55-60%. 4. The left ventricular diastolic function is abnormal. 5. E/e' 10 is mildly elevated. 6. Atrial fibrillation. 7. Left atrial chamber dimension is severely enlarged. 8. Right atrial chamber dimension is severely enlarged. 9. There is mild aortic valve sclerosis. 10. There is trace aortic valve regurgitation. 11. There is mild mitral valve regurgitation. 12. There is trace tricuspid valve regurgitation. 13. Severe pulmonary hypertension, estimated pulmonary arterial systolic pressure is 60 mmHg. Left Ventricle Definity contrast administered improved wall motion interpretation. Atrial fibrillation. E/e' 10 is mildly elevated. Left ventricular chamber dimension is normal. Left ventricular systolic function is normal, estimated at 55-60%. The left ventricular diastolic function is abnormal. Right Ventricle Right ventricular chamber dimension is not well visualized. Left Atria Left atrial chamber dimension is severely enlarged. Right Atria Right atrial chamber dimension is severely enlarged. Aortic Valve The aortic valve is trileaflet. There is mild aortic valve sclerosis. There is no aortic valve stenosis. There is trace aortic valve regurgitation. Pulmonic Valve There is no pulmonic regurgitation. Mitral Valve There is no mitral valve stenosis. There is mild mitral valve regurgitation. Tricuspid Valve There is trace tricuspid valve regurgitation. Severe pulmonary hypertension, estimated pulmonary arterial systolic pressure is 60 mmHg. Pericardium/Pleural There is no pericardial effusion. Inferior Vena Cava Normal inferior vena cava with >50% collapse upon inspiration consistent with normal right atrial pressure, 5 mmHg. Aorta The aortic root size at the sinus of Valsalva is normal. Left Ventricular Outflow Tract Name Value Normal LVOT 2D LVOT Diameter 2.03 cm LVOT Doppler LVOT Peak Gradient 6 mmH
[2023-05-18] MEDS: PERFLUTREN LIPID MICROSPHERES 1.5 ML VIAL DILUTED TO 10 ML TOTAL VOLUME IV PUSH (13:40)
--- NOTE | 2023-05-18 14:51 | IVDEFINITY ---
Prior to administration of IV Definity the patient was educated on the risks and benefits of the imaging enhancing agent including potential adverse side effects. The patient verbalized understanding. Allergies were verified. No exclusion criteria were identified and at least one of the following inclusion criteria were met: 1) physician request, 2) patient technically difficult to image (per the [place] [employer] guidelines of two or more segments not discernable within the apical view), or 3) questionable left ventricular function. ?
== END 2023-05-18 12:32 | disposition home or self-care (01) ==
PROVIDERS: PCP Family Medicine; Visit Provider Internal Medicine Cardiovascular Disease
DX: I48.91 Unspecified atrial fibrillation (principal)
CPT/HCPCS: C8929; Q9957

== ENCOUNTER 2023-06-09 10:40 | Outpatient (CLI) | payer BC, SELFPAY ==
--- NOTE | ~2023-06-09 | US_ITS ---
US abdomen limited INDICATION: Fatty liver PROCEDURE: Realtime right upper abdominal ultrasound. COMPARISON: No prior studies for comparison. FINDINGS: The pancreas is not well visualized due to bowel gas. Liver echotexture is increased, cons istent with fatty infiltration. There is normal directional flow in the portal vein. The gallbladder is normal without stones, gallbladder wall thickening or pericholecystic fluid. Comm on bile duct is not visualized. No sonographic Batista's sign. IMPRESSION: 1: Fatty infiltration of the liver. Reviewed, dictated and finalized at location B. . 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
== END 2023-06-09 10:41 | disposition home or self-care (01) ==
PROVIDERS: PCP Family Medicine; Visit Provider Family Medicine
DX: K76.0 Fatty (change of) liver, not elsewhere classified (principal); R60.0 Localized edema
CPT/HCPCS: 76705

== ENCOUNTER 2023-06-21 11:15 | Outpatient (CLI) | payer BC, SELFPAY ==
--- NOTE | ~2023-06-21 | CT_ITS ---
CT Scan of the Chest without Contrast: Clinical Indication: Dyspnea Technique: Contiguous sections were acquired throughout the chest without intravenous contrast. Dose reduction technique was used on this scan by utilizing automated exposure control and iterative recon struction technique. The dose-length product (DLP) was 1077.38 mGy-cm. COMPARISON: 03/11/2020 Findings: There is no evidence of any significant mediastinal, hilar or axillary lymphadenopathy. The mediastin al soft tissues appear normal. There is no evidence of pleural or pericardial effusion. The lungs are clear. No pulmonary nodules or infiltrates are noted. Images through the upper abdomen reveal no abnormalities. Impression: No significant abnormalities seen. Reviewed, dictated and finalized at location . ANALYST Impression: No significant abnormalities seen.
== END 2023-06-21 11:16 | disposition home or self-care (01) ==
PROVIDERS: PCP Family Medicine; Visit Provider Family Medicine
DX: R06.09 Other forms of dyspnea (principal); I27.20 Pulmonary hypertension, unspecified
CPT/HCPCS: 71250